=== PATIENT | male | born 1985 | race Caucasian/White ===

== ENCOUNTER → 2023-07-10 | Outpatient (CLI) | payer BC ==
--- NOTE | 2023-07-10 12:00 | CA ---
Stress Echo Report Tigre Parham Age: 37 Gender: M : 1985 Exam Date: 07/10/2023 10:17 Exam Location: [facility] Ht (in): 69 Wt (lb): 258 Ordering Physician: Karl Lehman MD Referring Physician: Karl Lehman MD Executive Legal Secretary: SOPHIA, Technologist Procedure CPT: Indication: R94.31 ABNORMAL ELECTROCARDIOGRAM [ECG] [EKG] ICD-9 Codes: Rhythm: Patient History: CHEST PAIN, HTN, FAMILY HX OF HEART DISEASE, Cardiac Medications: Medications in past 24 hours: Contrast: Stress Results Protocol: Lino Total dose(mL): Exercise Duration (min:sec): 9:[address] Depression (mm): Angina Score: Shirley Score: METS: 10.5 Resting HR: 84 Resting BP: 138 / 86 Peak HR: 185 Peak BP: 220 / 59 Max Predicted HR: 181 102 % Max Predicted HR Target HR: 154 Double Product: [id number] Stress Summary: BP Response: Reason for Termination: MAX EXERTION/TARGET HR Cardiac Symptoms: ASYMPTOMATIC ECG Analysis Resting ECG: Stress ECG: Arrhythmia: Echo Analysis Resting Echo: Peak Echo Analysis: MEASUREMENTS (Male/Female) Normal Values CONCLUSIONS Good exercise capacity and a Lino protocol Abnormal ECG at baseline No echocardiographic evidence for ischemia, excellent augmentation overall LV contractility, without development of any wall motion abnormalities Hypertensive response to exercise Peak systolic blood pressure 221/[address] Eleazar Sands MD (Electronically Signed) Final Date: 10 July 2023 11:59
== END | disposition home or self-care (01) ==
LOC: RADNMMAIN 09:53
PROVIDERS: ATTEND Family Medicine
DX: R94.31 Abnormal electrocardiogram [ECG] [EKG] (principal)
CPT/HCPCS: 93351